=== PATIENT | male | born 1990 ===

== ENCOUNTER 2016-11-01 16:14 | Observation (INO) | payer SELFPAY ==
[2016-11-01 16:14] VITALS: BMI 24.3
[2016-11-01 16:47] LABS: BASO # 0.1 K/uL (0.0-0.2); BASO % 0.9 % (0.0-2.0); EOS % 0.3 % (0.0-4.0); HEMATOCRIT 41.5 % (35.0-51.0); LYMPH # 1.2 K/uL (1.0-4.3); LYMPH % 15.1 % (20.0-40.0); MEAN CELL VOLUME 88.5 fl (80.0-94.0); MEAN CORPUSCULAR HEMOGLOBIN 29.8 pg (27.0-31.0); MEAN CORPUSCULAR HGB CONC 33.6 g/dL (33.0-37.0); MEAN PLATELET VOLUME 8.1 fl (7.2-11.7); MONO # 0.5 K/uL (0.0-0.8); MONO % 6.5 % (0.0-10.0); NEUT % 77.2 % (50.0-75.0); RED CELL DISTRIBUTION WIDTH 12.7 % (11.5-14.5); WHITE BLOOD COUNT 7.8 K/uL (4.8-10.8)
[2016-11-01 16:59] LABS: ALB/GLOB RATIO 2.1 (1.0-2.1); ALKALINE PHOSPHATASE 69 U/L (38-126); ALT/SGPT 26 U/L (21-72); AST/SGOT 27 U/L (17-59); BILIRUBIN,TOTAL 0.8 mg/dl (0.2-1.3); BLOOD UREA NITROGEN 15 mg/dl (9-20); CALCIUM 9.9 mg/dL (8.4-10.2); CARBON DIOXIDE 21 mmol/L (22-30); CHLORIDE 108 mmol/L (98-107); GFR AFRICAN-AMERICAN > 60; GLUCOSE,RANDOM 120 mg/dL (75-110); PHOSPHOROUS 2.5 mg/dl (2.5-4.5); POTASSIUM 3.9 MMOL/L (3.6-5.0); SODIUM 146 mmol/l (132-148); TOTAL PROTEIN 7.2 G/DL (6.3-8.2)
[2016-11-01 17:02] LABS: RBC URINE 2 /hpf (0-3); URINE BILIRUBIN NEGATIVE (NEGATIVE); URINE BLOOD NEGATIVE (NEGATIVE); URINE COLOR YELLOW (YELLOW); URINE GLUCOSE (UA) NEG (Normal); URINE KETONE TRACE mg/dL (NEGATIVE); URINE LEUKOCYTE ESTERASE NEG Leu/uL (Negative); URINE PROTEIN 30 mg/dL (NEGATIVE); URINE UROBILINOGEN 0.2-1.0 mg/dL (0.2-1.0); WBC URINE < 1 /hpf (0-5)
[2016-11-01] MEDS ORDERED: levETIRAcetam 1,000 MG in Sodium Chloride 0.9% 200 ML IVPB ONE (18:03)
[2016-11-01] MEDS ORDERED: levETIRAcetam 1,000 MG in Sodium Chloride 0.9% 100 ML IVPB ONE (18:53)
--- NOTE | 2016-11-01 19:28 | ED PDOC ---
HPI: Seizure Time Seen by Provider: 11/01/16 16:16 Chief Complaint (Nursing): Seizure Chief Complaint (Provider): Seizure - Witnessed, no head injury History Per: Patient History/Exam Limitations: no limitations Recent Seizure Activity Began: Just Before Arrival Number Of Seizures: One Length Of Seizures (Duration): Minutes (1-2) Precipitating Factor(s): Missed Dose Of Anti-seizure Medication, Recent Street Drugs (? ) Additional Complaint(s): Pt states he was diagnosed 1 year ago and has been taking keppra since. Pt states he was supposed to take 500mg PO BID but he has only been taking 1 tab daily not two tabs. Pt states that he smoked marijuana a yesterday and cocaine a week ago. Pt states it also uses benzos for anxiety, but not daily. Past Medical History Reviewed: Historical Data, Nursing Documentation, Vital Signs Vital Signs: Last Vital Signs Temp 98.3 F 11/01/16 16:15 Pulse 113 H 11/01/16 16:15 Resp 16 11/01/16 16:15 BP 149/115 H 11/01/16 16:15 Pulse Ox 94 L 11/01/16 19:44 - Medical History PMH: Anxiety (NO PSYCHIATRIST SEEN), Asthma ( A CHILD), Seizures Denies: Chronic Kidney Disease - Surgical History Surgical History: No Surg Hx - Family History Family History: States: Unknown Family Hx - Living Arrangements Living Arrangements: With Family - Social History Current smoker - smoking cessation education provided: No Alcohol: None Drugs: Cannabis, Cocaine - Immunization History Hx Tetanus Toxoid Vaccination: No Hx Influenza Vaccination: No - Home Medications Home Medications: Ambulatory Orders Medication Instructions Recorded clonazePAM [Klonopin] 0.25 mg PO DAILY PRN #0 tab 12/02/15 clonazePAM [Klonopin] 0.5 mg PO HS #0 tab 12/02/15 levETIRAcetam [Keppra] 500 mg PO BID #0 tab 12/02/15 - Allergies Allergies/Adverse Reactions: Allergies Allergy/AdvReac Type Severity Reaction Status Date / Time No Known Allergies Allergy Verified 11/01/16 16:15 Review of Systems ROS Statement: Except As Marked, All Systems Reviewed And Found Negative Neurological: Positive for: Seizures Physical Exam - Reviewed Nursing Documentation Reviewed: Yes Vital Signs Reviewed: Yes - Physical Exam Appears: Positive for: Well, Non-toxic, No Acute Distress Head Exam: Positive for: ATRAUMATIC, NORMAL INSPECTION, NORMOCEPHALIC Skin: Positive for: Normal Color, Warm, DRY Eye Exam: Positive for: Normal appearance ENT: Positive for: Normal ENT Inspection Neck: Positive for: Normal, Painless ROM Cardiovascular/Chest: Positive for: Regular Rate, Rhythm Respiratory: Positive for: CNT, Normal Breath Sounds Gastrointestinal/Abdominal: Positive for: Normal Exam, Bowel Sounds, Soft Back: Positive for: Normal Inspection Extremity: Positive for: Normal ROM Neurologic/Psych: Positive for: Alert, Oriented - Laboratory Results Result Diagrams: 11/01/16 16:44 11/01/16 16:44 - ECG O2 Sat by Pulse Oximetry: 94 Medical Decision Making Medical Decision Making: Discussed case with Dr. Castillo. States to given 1g IV of Keppra and f.u with neurology. 19:15 - Second seizure in ER Discussed with hospitalist for observation. 19:30 - Discussed again with Dr. Castillo. Disposition - Clinical Impression Clinical Impression: Seizure - Patient ED Disposition Is Patient to be Admitted: Yes - Disposition Disposition Time: 19:31 Condition: STABLE - Pt Status Changed To: Hospital Disposition Of: Inpatient - Admit Certification Admit to Inpatient:: After my assessment, the patient will require hospitalization for at least two midnights. This is because of the severity of symptoms shown, intensity of services needed, and/or the medical risk in this patient being treated as an outpatient. - POA Present On Arrival: None
[2016-11-01] MEDS ORDERED: Sodium Chloride 0.9% 1,000 ML IV STA (19:50)
--- NOTE | 2016-11-01 20:16 | CP.PCM.HP ---
History of Present Illness - History of Present Illness History of Present Illness: 26 yo male diagnosed 2 yrs ago with Seizure DO and was supposed to be on Keppra BID but was not able to take for 2 days developed generalized seizure while resting from work around 3pm. Patient was brought to the ER and around 7pm had another generalized seizure activity. Present on Admission - Present on Admission Any Indicators Present on Admission: No History of DVT/PE: No History of Uncontrolled Diabetes: No Urinary Catheter: No Decubitus Ulcer Present: No Review of Systems - Review of Systems All systems: reviewed and no additional remarkable complaints except (aside from those mentioned above, 12 point system review were negative by me) Past Patient History - Infectious Disease Hx of Infectious Diseases: None - Past Social History Smoking Status: Light Smoker < 10 Cigarettes Daily Alcohol: Occasional Drugs: Cannabis, Cocaine - CARDIAC Hx Cardiac Disorders: No - PULMONARY Hx Asthma: Yes ( A CHILD) - NEUROLOGICAL Hx Seizures: Yes - HEENT Hx HEENT Problems: No - RENAL Hx Chronic Kidney Disease: No - ENDOCRINE/METABOLIC Hx Endocrine Disorders: No - HEMATOLOGICAL/ONCOLOGICAL Hx Blood Disorders: No - INTEGUMENTARY Hx Dermatological Problems: Yes ([place]AT[place]) - MUSCULOSKELETAL/RHEUMATOLOGICAL Hx Musculoskeletal Disorders: Yes Hx Falls: Yes (SEIZURE) - GASTROINTESTINAL Hx Gastrointestinal Disorders: No - GENITOURINARY/GYNECOLOGICAL Hx Genitourinary Disorders: No - PSYCHIATRIC Hx Anxiety: Yes (NO PSYCHIATRIST SEEN) - SURGICAL HISTORY Hx Surgeries: No - ANESTHESIA Hx Anesthesia: No Meds Allergies/Adverse Reactions: Allergies Allergy/AdvReac Type Severity Reaction Status Date / Time No Known Allergies Allergy Verified 11/01/16 16:15 Physical Exam - Constitutional Appears: No Acute Distress - Head Exam Head Exam: ATRAUMATIC - Eye Exam Eye Exam: PERRL. absent: Scleral icterus - ENT Exam ENT Exam: Mucous Membranes Moist - Neck Exam Neck exam: Negative for: Meningismus - Respiratory Exam Respiratory Exam: absent: Rhonchi, Wheezes, Respiratory Distress - Cardiovascular Exam Cardiovascular Exam: REGULAR RHYTHM, +S1, +S2 - GI/Abdominal Exam GI & Abdominal Exam: Soft. absent: Tenderness - Rectal Exam Rectal Exam: Deferred - Extremities Exam Extremities exam: Negative for: pedal edema - Neurological Exam Neurological exam: Alert, Oriented x3 - Psychiatric Exam Psychiatric exam: Normal Affect - Skin Skin Exam: Dry, Intact Results - Vital Signs Recent Vital Signs: Last Vital Signs Temp 98.3 F 11/01/16 16:15 Pulse 113 H 11/01/16 16:15 Resp 16 11/01/16 16:15 BP 149/115 H 11/01/16 16:15 Pulse Ox 94 L 11/01/16 19:46 - Labs Result Diagrams: 11/01/16 16:44 11/01/16 16:44 Labs: Laboratory Results - last 24 hr 11/01/16 11/01/16 16:44 16:45 WBC 7.8 RBC 4.68 Hgb 13.9 Hct 41.5 MCV 88.5 MCH 29.8 MCHC 33.6 RDW 12.7 Plt Count 224 MPV 8.1 Neut % (Auto) 77.2 H Lymph % (Auto) 15.1 L [place] % (Auto) 6.5 Eos % (Auto) 0.3 Baso % (Auto) 0.9 Neut # 6.0 Lymph # 1.2 [place] # 0.5 Eos # 0.0 Baso # 0.1 Sodium 146 Potassium 3.9 Chloride 108 H Carbon Dioxide 21 L Anion Gap 21 H BUN 15 Creatinine 0.9 Est GFR ( Amer) > 60 Est GFR (Non-Af Amer) > 60 Random Glucose 120 H Calcium 9.9 Phosphorus 2.5 Total Bilirubin 0.8 AST 27 ALT 26 Alkaline Phosphatase 69 Total Protein 7.2 Albumin 4.9 Globulin 2.3 Albumin/Globulin Ratio 2.1 Urine Color Yellow Urine Clarity Clear Urine pH 5.0 Ur Specific [place] 1.027 Urine Protein 30 Urine Glucose (UA) Neg Urine Ketones Trace Urine Blood Negative Urine Nitrate Negative Urine Bilirubin Negative Urine Urobilinogen 0.2-1.0 Ur Leukocyte Esterase Neg Urine RBC (Auto) 2 Urine Microscopic WBC < 1 Ur Squamous Epith Cells < 1 Hyaline Casts 0-2 Urine Opiates Screen Negative Urine Methadone Screen Negative Ur Barbiturates Screen Negative Ur Phencyclidine Scrn Negative Ur Amphetamines Screen Negative U Benzodiazepines Scrn Positive H U Oth Cocaine Metabols Positive H U Cannabinoids Screen Positive H Assessment & Plan (1) Seizure Status: Acute Comment: place on observation in telemetry. seizure precaution. Ativan 1mg IV q 4hrs prn for seizure activity or agitation. Keppra 500mg PO BID
[2016-11-02 07:27] LABS: BASO % 0.4 % (0.0-2.0); EOS # 0.2 K/uL (0.0-0.7); EOS % 1.9 % (0.0-4.0); HEMATOCRIT 39.2 % (35.0-51.0); LYMPH # 1.6 K/uL (1.0-4.3); LYMPH % 20.4 % (20.0-40.0); MEAN CELL VOLUME 88.4 fl (80.0-94.0); MEAN CORPUSCULAR HEMOGLOBIN 29.5 pg (27.0-31.0); MEAN CORPUSCULAR HGB CONC 33.4 g/dL (33.0-37.0); MEAN PLATELET VOLUME 8.6 fl (7.2-11.7); MONO # 0.8 K/uL (0.0-0.8); MONO % 10.2 % (0.0-10.0); NEUT # 5.4 K/uL (1.8-7.0); NEUT % 67.1 % (50.0-75.0); RED CELL DISTRIBUTION WIDTH 12.5 % (11.5-14.5)
[2016-11-02 07:48] LABS: BLOOD UREA NITROGEN 11 mg/dl (9-20); CALCIUM 8.7 mg/dL (8.4-10.2); CARBON DIOXIDE 24 mmol/L (22-30); CHLORIDE 110 mmol/L (98-107); GFR AFRICAN-AMERICAN > 60; GLUCOSE,RANDOM 84 mg/dL (75-110); POTASSIUM 3.6 MMOL/L (3.6-5.0); SODIUM 142 mmol/l (132-148)
[2016-11-02 08:46] VITALS: O2SAT 96
--- NOTE | 2016-11-02 11:48 | CP.PCM.DIS ---
Provider - Provider Date of Admission: 11/01/16 20:12 Attending physician: Gautam Quiroz MD Time Spent in preparation of Discharge (in minutes): 35 Diagnosis - Discharge Diagnosis (1) Seizure Status: Acute Comment: no recurrence of seizure activity overnight. continue Keppra 500mg PO BID. Klonopin 0.5mg PO HS. to follow up in [facility] Hospital Course - Lab Results Lab Results: Most Recent Lab Values WBC 8.0 K/uL (4.8-10.8) 11/02/16 06:15 RBC 4.44 Mil/uL (4.40-5.90) 11/02/16 06:15 Hgb 13.1 g/dL (12.0-18.0) 11/02/16 06:15 Hct 39.2 % (35.0-51.0) 11/02/16 06:15 MCV 88.4 fl (80.0-94.0) 11/02/16 06:15 MCH 29.5 pg (27.0-31.0) 11/02/16 06:15 MCHC 33.4 g/dL (33.0-37.0) 11/02/16 06:15 RDW 12.5 % (11.5-14.5) 11/02/16 06:15 Plt Count 205 K/uL (130-400) 11/02/16 06:15 MPV 8.6 fl (7.2-11.7) 11/02/16 06:15 Neut % (Auto) 67.1 % (50.0-75.0) 11/02/16 06:15 Lymph % (Auto) 20.4 % (20.0-40.0) 11/02/16 06:15 [place] % (Auto) 10.2 % (0.0-10.0) H 11/02/16 06:15 Eos % (Auto) 1.9 % (0.0-4.0) 11/02/16 06:15 Baso % (Auto) 0.4 % (0.0-2.0) 11/02/16 06:15 Neut # 5.4 K/uL (1.8-7.0) 11/02/16 06:15 Lymph # 1.6 K/uL (1.0-4.3) 11/02/16 06:15 [place] # 0.8 K/uL (0.0-0.8) 11/02/16 06:15 Eos # 0.2 K/uL (0.0-0.7) 11/02/16 06:15 Baso # 0.0 K/uL (0.0-0.2) 11/02/16 06:15 Sodium 142 mmol/l (132-148) 11/02/16 06:15 Potassium 3.6 MMOL/L (3.6-5.0) 11/02/16 06:15 Chloride 110 mmol/L (98-107) H 11/02/16 06:15 Carbon Dioxide 24 mmol/L (22-30) 11/02/16 06:15 Anion Gap 12 (10-20) 11/02/16 06:15 BUN 11 mg/dl (9-20) 11/02/16 06:15 Creatinine 0.8 mg/dL (0.8-1.5) 11/02/16 06:15 Est GFR ( Amer) > 60 11/02/16 06:15 Est GFR (Non-Af Amer) > 60 11/02/16 06:15 Random Glucose 84 mg/dL (75-110) 11/02/16 06:15 Calcium 8.7 mg/dL (8.4-10.2) 11/02/16 06:15 Phosphorus 2.5 mg/dl (2.5-4.5) 11/01/16 16:44 Total Bilirubin 0.8 mg/dl (0.2-1.3) 11/01/16 16:44 AST 27 U/L (17-59) 11/01/16 16:44 ALT 26 U/L (21-72) 11/01/16 16:44 Alkaline Phosphatase 69 U/L (38-126) 11/01/16 16:44 Total Protein 7.2 G/DL (6.3-8.2) 11/01/16 16:44 Albumin 4.9 g/dL (3.5-5.0) 11/01/16 16:44 Globulin 2.3 gm/dL (2.2-3.9) 11/01/16 16:44 Albumin/Globulin Ratio 2.1 (1.0-2.1) 11/01/16 16:44 Urine Color Yellow (YELLOW) 11/01/16 16:45 Urine Clarity Clear (Clear) 11/01/16 16:45 Urine pH 5.0 (5.0-8.0) 11/01/16 16:45 Ur Specific [place] 1.027 (1.003-1.030) 11/01/16 16:45 Urine Protein 30 mg/dL (NEGATIVE) 11/01/16 16:45 Urine Glucose (UA) Neg mg/dL (Normal) 11/01/16 16:45 Urine Ketones Trace mg/dL (NEGATIVE) 11/01/16 16:45 Urine Blood Negative (NEGATIVE) 11/01/16 16:45 Urine Nitrate Negative (NEGATIVE) 11/01/16 16:45 Urine Bilirubin Negative (NEGATIVE) 11/01/16 16:45 Urine Urobilinogen 0.2-1.0 mg/dL (0.2-1.0) 11/01/16 16:45 Ur Leukocyte Esterase Neg Angie/uL (Negative) 11/01/16 16:45 Urine RBC (Auto) 2 /hpf (0-3) 11/01/16 16:45 Urine Microscopic WBC < 1 /hpf (0-5) 11/01/16 16:45 Ur Squamous Epith Cells < 1 /hpf (0-5) 11/01/16 16:45 Hyaline Casts 0-2 /hpf (0-2) 11/01/16 16:45 Urine Opiates Screen Negative (NEGATIVE) 11/01/16 16:45 Urine Methadone Screen Negative (NEGATIVE) 11/01/16 16:45 Ur Barbiturates Screen Negative (NEGATIVE) 11/01/16 16:45 Ur Phencyclidine Scrn Negative (NEGATIVE) 11/01/16 16:45 Ur Amphetamines Screen Negative (NEGATIVE) 11/01/16 16:45 U Benzodiazepines Scrn Positive (NEGATIVE) H 11/01/16 16:45 U Oth Cocaine Metabols Positive (NEGATIVE) H 11/01/16 16:45 U Cannabinoids Screen Positive (NEGATIVE) H 11/01/16 16:45 - Hospital Course Hospital Course: 26 yo male diagnosed 2 yrs ago with Seizure DO brought in because of generalized seizure after resting from work. Patient admitted missing 2 days of Keppra. Pt was placed on observation in telemetry and was given a loading dose of Keppra 1000mg IV. No further seizure activity was noted there after. Patient was discharged in stable condition and was advised not missed his medications. Patient to follow up in [facility]. Discharge Exam - Head Exam Head Exam: ATRAUMATIC - Eye Exam Eye Exam: PERRL. absent: Scleral icterus - ENT Exam ENT Exam: Mucous Membranes Moist - Respiratory Exam Respiratory Exam: absent: Wheezes, Respiratory Distress - Cardiovascular Exam Cardiovascular Exam: REGULAR RHYTHM, +S1, +S2 - GI/Abdominal Exam GI & Abdominal Exam: Soft. absent: Tenderness - Rectal Exam Rectal Exam: Deferred - Neurological Exam Neurological exam: Alert, Oriented x3 - Psychiatric Exam Psychiatric exam: Normal Affect - Skin Skin Exam: Dry, Intact Discharge Plan - Discharge Medications Prescriptions: levETIRAcetam [Keppra] 500 mg PO BID #60 tab clonazePAM [Klonopin] 0.5 mg PO HS #14 tab - Follow Up Plan Condition: STABLE Disposition: HOME/ ROUTINE
[2016-11-02 12:18] VITALS: BP 120/66; PULSE 61; RESP 20; TEMP 98.3
== END 2016-11-02 13:17 | disposition home or self-care (01) ==
LOC: H.ER 16:14 → H.ERHOLD 20:12 → H.TEL 22:28
DX: G40.409 Other generalized epilepsy and epileptic syndromes, not intractable, without status epilepticus (principal); F17.210 Nicotine dependence, cigarettes, uncomplicated
CPT/HCPCS: 36415; 80048; 80053; 80299; 81003; 84100; 85025; 96360; 99285; G0378; G0480; J1953; J2060; J7040